=== PATIENT | male | born 1970 | race Caucasian/White ===

== ENCOUNTER 2020-01-11 12:41 | Emergency (ER) | payer BC ==
[2020-01-11] MEDS ORDERED: Phenazopyridine 95 MG Tab PO ONE (12:42)
--- NOTE | 2020-01-11 13:01 | EDM.PDOC ---
ED HPI GENERAL MEDICAL PROBLEM - General Chief Complaint: General Stated Complaint: frequency, burning with urination Time Seen by Provider: 01/11/20 12:49 Source of Information: Reports: Patient History Limitations: Reports: No Limitations - History of Present Illness INITIAL COMMENTS - FREE TEXT/NARRATIVE: Patient to the emergency department complaining of urinary frequency and burning for the past few days. The patient also has some pain in the lower back. The patient denies any hematuria. The patient has no nausea no vomiting no diarrhea no constipation the patient advises that he has had similar symptoms about 10 years ago when he was diagnosed with a bladder infection. The patient denies any penile discharge. The patient does advise he has had a low-grade fever of 99. Onset: Gradual Duration: Day(s): (Symptoms for the past few days) Location: Reports: Back Quality: Reports: Ache Severity: Mild Improves with: Reports: None Worsens with: Reports: None Associated Symptoms: Denies: Confusion, Nausea/Vomiting, Weakness Treatments CROSS TIE TURNER: Reports: Other (see below) (none) Right Back Pain Score (Numeric/FACES): 4 - Related Data Allergies Allergy/AdvReac Type Severity Reaction Status Date / Time No Known Allergies Allergy Verified 01/11/20 12:46 Home Meds: Home Meds Phenazopyridine [Pyridium] 100 mg PO TID 2 Days #6 tab 01/11/20 [Rx] cephALEXin [Keflex] 500 mg PO QID 10 Days #40 cap 01/11/20 [Rx] ED ROS GENERAL - Review of Systems Review Of Systems: See Below Constitutional: Reports: No Symptoms, Fever HEENT: Reports: No Symptoms Respiratory: Reports: No Symptoms Cardiovascular: Reports: No Symptoms GI/Abdominal: Denies: Abdominal Pain, Nausea, Vomiting : Reports: Flank Pain, Frequency, Pain, Urgency. Denies: Discharge, Dysuria, Hematuria, Urinary Retention Musculoskeletal: Reports: No Symptoms. Denies: Neck Pain Skin: Reports: No Symptoms Neurological: Reports: No Symptoms Psychiatric: Reports: No Symptoms ED EXAM, GENERAL - Physical Exam Exam: See Below Exam Limited By: No Limitations General Appearance: Alert, WD/WN, No Apparent Distress Head: Atraumatic, Normocephalic Neck: Normal Inspection, Supple, Non-Tender, Full Range of Motion Respiratory/Chest: No Respiratory Distress, Lungs Clear, Normal Breath Sounds, Chest Non-Tender Cardiovascular: Normal Peripheral Pulses, Regular Rate, Rhythm Peripheral Pulses: 2+: Radial (L), Radial (R) GI/Abdominal: Soft, Non-Tender, No Distention Back Exam: Normal Inspection, Full Range of Motion. No: CVA Tenderness (L), CVA Tenderness (R) Extremities: Normal Inspection, Normal Range of Motion, Non-Tender, Normal Capillary Refill Neurological: Alert, Oriented, Normal Cognition, Normal Gait, No Motor/Sensory Deficits Psychiatric: Normal Affect, Normal Mood Skin Exam: Warm, Dry, Intact, Normal Color, No Rash Course - Vital Signs Text/Narrative:: 1348 the patient was evaluated in the emergency department the patient did have a urinalysis that showed some leukocyte Estrace as well as elevated white blood cells in the urine. Nitrates were negative the patient's protein was elevated as well as a glucose, there is also large blood noted in the urinalysis. With the patient urinalysis as reported I had a long discussion with the patient and advised him of some differential diagnosis including renal calculi however advised him that typically patients present and significant pain and usually uncomfortable without ureteral calculi however advised him that that might not always be the case and that still might be a potential problem that he is having. I did advise him the different types of UTIs from simple UTI to pyelonephritis, I did advise him that I was kind of concerned more towards the pyelonephritis as he is having flank pain. I did discuss with him that we would give him dose of IV Rocephin which is an antibiotic and then get him on oral antibiotics, advised him that he needs increase his fluids however I also advised him that we would need to obtain some blood work which would consist of a CBC and a basic chemistry to get a baseline and he will need to follow-up in the clinic this week for reevaluation to ensure that the protein is resolved in his urine as well as the rest of it clears up. And he agrees. 1400 the patient did have some nausea, he was given Zofran 4 mg IV and also normal saline 1 L bolus. The patient's white count is 11.8 with normal differential general chemistries are also essentially normal. After the treatment the patient feels much better. The patient is advised to increase his fluids, take the medication as prescribed and again follow-up with the family doctor this week Last Recorded V/S: Last Vital Signs Temp 36.4 C 01/11/20 13:00 Pulse 85 01/11/20 13:00 Resp 18 01/11/20 13:00 BP 137/76 01/11/20 13:00 Pulse Ox 97 01/11/20 13:00 - Orders/Labs/Meds Orders: Active Orders 24 hr Category Date Time Status CULTURE URINE [RM] Routine Lab 01/11/20 12:59 Received UA W/SOCORRO RFLX IF INDICATED [URIN] Stat Lab 01/11/20 12:50 Ordered Labs: Laboratory Tests 01/11/20 01/11/20 01/11/20 Range/Units 12:59 13:29 13:29 WBC 11.8 H (5.0-10.0) 10^3/uL RBC 5.31 (4.50-6.00) 10^6/uL Hgb 16.7 (14.0-18.0) g/dL Hct 47.9 (40.0-54.0) % MCV 90.2 (82.0-94.0) fL MCH 31.5 (27.0-32.0) pg MCHC 34.9 (33.0-38.0) g/dL RDW Coeff of Jill 12.8 (11.0-15.0) % Plt Count 187 (150-400) 10^3/uL Neut % (Auto) 81.5 (35-85) % Lymph % (Auto) 10.1 (10-55) % [place] % (Auto) 7.4 (0-16) % Eos % (Auto) 0.8 (0-5) % Baso % (Auto) 0.2 (0-3) % Neut # (Auto) 9.59 H (1.80-7.00) 10^3/uL Lymph # (Auto) 1.19 (1.00-4.80) 10^3/uL [place] # (Auto) 0.87 H (0.00-0.80) 10^3/uL Eos # (Auto) 0.10 (0.00-0.45) 10^3/uL Baso # (Auto) 0.02 10^3/uL Sodium 139 (136-145) mEq/L Potassium 3.6 (3.5-5.0) mEq/L Chloride 101 (98-106) mEq/L Carbon Dioxide 30 (21-32) mmol/L BUN 15 (7-18) mg/dL Creatinine 1.2 (0.7-1.3) mg/dL Est Cr Clr Drug Dosing TNP Estimated GFR (MDRD) > 60 (>=60) mL/min Glucose 108 H (75-99) mg/dL Calcium 9.0 (8.4-10.1) mg/dL Urine Color Dark yellow (YELLOW) Urine Appearance Slightly cloudy (CLEAR) Urine pH 5.5 (4.5-8.0) Ur Specific [place] >= 1.030 H (1.003-1.020) Urine Protein 100 H (NEGATIVE) mg/dL Urine Glucose (UA) 100 H (NEGATIVE) mg/dL Urine Ketones Trace H (NEGATIVE) mg/dL Urine Occult Blood Large H (NEGATIVE) Urine Nitrite Negative (NEGATIVE) Urine Bilirubin Negative (NEGATIVE) Urine Urobilinogen 0.2 (0.2-1.0) EU/dL Ur Leukocyte Esterase Small H (NEGATIVE) Urine RBC 50-75 H (0-5) /HPF Urine WBC 30-40 H (0-5) /HPF Amorphous Sediment Few H (NOT SEEN) /HPF Urine Bacteria Few H (NOT SEEN) /HPF Urinalysis Comment Meds: Medications Discontinued Medications Generic Name Dose Route Start Last Admin Trade Name Jennifer PRN Reason Stop Dose Admin Ceftriaxone Sodium 2 gm 01/11/20 13:40 01/11/20 13:55 Rocephin IVPUSH 01/11/20 13:41 2 gm ONETIME ONE Administration Sodium Chloride 1,000 mls @ 999 mls/hr 01/11/20 14:00 01/11/20 14:03 Normal Saline IV 999 mls/hr ASDIRECTED IFEANYI Administration Ondansetron HCl 4 mg 01/11/20 13:59 01/11/20 14:03 Zofran IVPUSH 01/11/20 14:00 4 mg ONETIME ONE Administration Phenazopyridine HCl 1 packet 01/11/20 14:11 01/11/20 14:15 Take Home: Phenazopyridine, 4 Tab Pack .XX 01/11/20 14:12 1 packet ONETIME ONE Administration Departure - Departure Time of Disposition: 13:56 Disposition: Home, Self-Care 01 Condition: Good Clinical Impression: Pyelonephritis of right kidney - Discharge Information *PRESCRIPTION DRUG MONITORING PROGRAM REVIEWED*: Not Applicable *COPY OF PRESCRIPTION DRUG MONITORING REPORT IN PATIENT LIBORIO: Not Applicable Prescriptions: cephALEXin [Keflex] 500 mg PO QID 10 Days #40 cap Phenazopyridine [Pyridium] 100 mg PO TID 2 Days #6 tab Instructions: Pyelonephritis, Adult, [id number] Referrals: Alvino Rosen Jr, CERTIFICATION TECHNICIAN [Primary Care Provider] - Forms: ED Department Discharge Sepsis Event Note (ED) - Focused Exam Vital Signs: Vital Signs Temp Pulse Resp BP Pulse Ox 01/11/20 13:00 36.4 C 85 18 137/76 97 - Problem List & Annotations (1) Pyelonephritis of right kidney SNOMED Code(s): 19840506 Code(s): N12 - TUBULO-INTERSTITIAL NEPHRITIS, NOT SPCF ACUTE OR CHRONIC Status: Acute Priority: High - Problem List Review Problem List Initiated/Reviewed/Updated: Yes - My Orders Last 24 Hours: My Active Orders 01/11/20 12:50 UA W/SOCORRO RFLX IF INDICATED [URIN] Stat 01/11/20 12:59 CULTURE URINE [RM] Routine - Assessment/Plan Last 24 Hours: My Active Orders 01/11/20 12:50 UA W/SOCORRO RFLX IF INDICATED [URIN] Stat 01/11/20 12:59 CULTURE URINE [RM] Routine Plan: The patient's past medical history, past surgical history, social history and past family medical history was reviewed see the nursing notes for details
[2020-01-11] MEDS ORDERED: cefTRIAXone 2 GM Vial IVPUSH ONE (13:40)
[2020-01-11 13:54] LABS: CHLORIDE,CL 101 mEq/L (98-106); SODIUM,NA 139 mEq/L (136-145)
[2020-01-11] MEDS ORDERED: Ondansetron 4 MG/2 ML SDV IVPUSH ONE (13:59)
[2020-01-11] MEDS ORDERED: Sodium Chloride 0.9% 1,000 ML IV SCH (14:00)
[2020-01-11] MEDS ORDERED: Take Home: Phenazopyridine 95 MG Tab, 4 Tab Pack ONE (14:11)
== END 2020-01-11 14:25 | disposition home or self-care (01) ==
LOC: CC.ED 12:41
DX: N12 Tubulo-interstitial nephritis, not specified as acute or chronic (principal)
CPT/HCPCS: 36415; 80048; 81001; 85025; 87086; 87088; 87186; 96374; 96375; 99283; A9270; J0696; J2405; J7030